=== PATIENT | male | born 1965 | race Caucasian/White ===

== ENCOUNTER 2020-01-27 07:35 | Outpatient (CLI) | payer BC, SELFPAY ==
--- NOTE | ~2020-01-27 | US_ITS ---
US abdomen complete EXAMINATION: US Abdomen Complete INDICATION: Unspecified abdominal hernia. Obstruction. PROCEDURE: Realtime High Resolution abdomen ultrasound. COMPARISON: CT dated 04/02/2004 FINDINGS: Gallbladder within normal limits. No gallstones, pericholecystic fluid, gallbladder wall t hickening or biliary dilatation. There is comet tail artifact, suspicious for adenomyomatosis. Common bile duct measures 3 mm. Liver echotexture within normal limits without focal mass. Pancreas within normal limits. Pancreati c tail is obscured by bowel gas. Spleen is unremarkeable. Renal echotexture is within normal limits bilaterally without hydronephrosis, contour deforming mass or renal stone. Right kidney measures 11.4 cm. Left kidney measures 12 cm. Visualized aspects of the aorta and IVC are within normal limits. Portal vein is patent. No sonograph ic Donahue's sign indicated by the technologist. IMPRESSION: 1: Comet tail artifact of the gallbladder, suspicious for adenomyomatosis. Reviewed, dictated and finalized at location A.
== END 2020-01-27 07:36 | disposition home or self-care (01) ==
PROVIDERS: PCP Family Medicine; Visit Provider Physician Assistant
DX: K46.9 Unspecified abdominal hernia without obstruction or gangrene (principal); R93.89 Abnormal findings on diagnostic imaging of other specified body structures
CPT/HCPCS: 76700

== ENCOUNTER 2020-12-07 01:52 | Day surgery (SDC) | payer BC, SELFPAY ==
[2020-11-27 14:04] VITALS: BMI 14.1
[2020-12-07] MEDS: LACTATED RINGERS 1,000 ML 150 ML IV CONT (06:34)
[2020-12-07 06:36] VITALS: BP 131/87; PULSE 68; RESP 17; TEMP 36.3; O2SAT 97
--- NOTE | 2020-12-07 07:22 | WPDANESEPPF ---
Anes - Initial Pre Proc Eval Procedure: Operation Date: 12/07/20 07:30 Proposed Procedures p Screening Colonoscopy - Jamari Bolanos MD Date/Time: 12/07/20 07:22 Surgeon: Jamari Bolanos MD Pre Op Diagnosis: neoplasm screening Patient Data Age: 55 Gender: M Height: 1.7 m Weight: 80.2 kg Last Vital Signs Temp 97.3 F L 12/07/20 06:36 Pulse 68 12/07/20 06:36 Resp 17 12/07/20 06:36 BP 131/87 12/07/20 06:36 Pulse Ox 97 12/07/20 06:36 Allergies Allergy/AdvReac Type Severity Reaction Status Date / Time NKDA Allergy Unknown Unknown Uncoded 12/07/20 06:27 Home Medications Medication Instructions Recorded Confirmed Type sodium,potassium,mag sulfates 17.5 See Rx Instructions PO .COMPLEX 10/31/20 Rx gram-3.13 gram-1.6 gram oral soln #354 ml atorvastatin 20 mg PO DAILY 11/27/20 11/27/20 History levothyroxine 125 mcg PO DAILY 11/27/20 11/27/20 History Patient hx anesthesia problems: none Family hx anesthesia problems: none [facility] Past Medical History Medical History (Updated 12/07/20 @ 07:21 by Levon Smiley MD) Hyperlipidemia Hypothyroid Throat cancer Social History Social History Smoking status: Never smoker Alcohol use details: occas Substance use type: does not use Living arrangements: with family Spiritual care concerns: No Anes - Eval Final PreProcedure Day of Procedure 12/07/20 07:22 Patient weight: overweight Heart: regular rate and rhythm Lungs: clear to auscultation Airway: Mallampati scale class II Neurological: alert and oriented Last oral intake: >/= 8 hours ASA classification: III Emergent: no Anesthetic plan: proceed Anesthesia type and monitoring: general GIVS and standard monitoring Informed Consent: The patient's anesthetic plan and its attendant risks and benefits were discussed with the patient/family/POA. Questions were solicited and answers provided to the satisfaction of the patient/family/POA.
--- NOTE | 2020-12-07 07:22 | WPDGICN ---
Assessment and Plan Assessment and plan (1) Encounter for screening colonoscopy: Code(s): Z12.11 - Encounter for screening for malignant neoplasm of colon Status: Acute Assessment and Plan: Patient presents for screening colonoscopy. Current weight appetite bowel movements are normal. Patient appears be at average risk for colon polyps. GI Consult Note Consult date/time: 12/07/20 07:22 HPI: Robinson Chin is a 55 year old male Presents for screening colonoscopy. Patient reports that his current weight appetite bowel movements are normal. Patient denies abdominal pain. Denies any blood in his stools. Bowel habits are regular. Family history is noncontributory. Review of Systems Review of Systems: All systems reviewed & are unremarkable except as noted in HPI and below PMFSH Past Medical History Medical History (Updated 12/07/20 @ 07:24 by Jamari Bolanos MD) Hyperlipidemia Hypothyroid Throat cancer Social History Social History Smoking status: Never smoker Alcohol use details: occas Substance use type: does not use Living arrangements: with family Spiritual care concerns: No Meds Home Medications and Allergies Home Medications Medication Instructions Recorded Confirmed Type sodium,potassium,mag sulfates 17.5 See Rx Instructions PO .COMPLEX 10/31/20 Rx gram-3.13 gram-1.6 gram oral soln #354 ml atorvastatin 20 mg PO DAILY 11/27/20 11/27/20 History levothyroxine 125 mcg PO DAILY 11/27/20 11/27/20 History Allergies Allergy/AdvReac Type Severity Reaction Status Date / Time NKDA Allergy Unknown Unknown Uncoded 12/07/20 06:27 Vital Signs Vital Signs - 24 hr 12/07/20 06:36 Temperature 97.3 F L Pulse Rate 68 Respiratory Rate 17 Blood Pressure 131/87 Pulse Oximetry 97 Exam Narrative: Exam Narrative: Physical exam reveals patient be alert. Vital signs stable. HEENT exam is unremarkable. Patient is anicteric. Lungs are clear to auscultation and percussion. Heart is without murmur or extra sounds. Abdominal exam bowel sounds are present soft nontender with no hepatosplenomegaly. Digital external rectal exam is normal.
[2020-12-07 07:48] VITALS: BP 125/83; PULSE 70; RESP 18; O2SAT 94
[2020-12-07 07:58] VITALS: BP 111/76; PULSE 63; RESP 17; O2SAT 94
[2020-12-07 08:08] VITALS: BP 124/83; PULSE 60; RESP 21; O2SAT 95
== END 2020-12-07 08:17 | disposition home or self-care (01) ==
PROVIDERS: PCP Family Medicine; Visit Provider Internal Medicine Gastroenterology
PROC: 0DJD8ZZ Inspection of Lower Intestinal Tract, Via Natural or Artificial Opening Endoscopic (ICD-10-PCS; CPT 45378; principal; 2020-12-07 07:30)
DX: Z12.11 Encounter for screening for malignant neoplasm of colon (principal); K57.30 Diverticulosis of large intestine without perforation or abscess without bleeding; K63.5 Polyp of colon; E78.5 Hyperlipidemia, unspecified; E03.9 Hypothyroidism, unspecified; Z85.819 Personal history of malignant neoplasm of unspecified site of lip, oral cavity, and pharynx
CPT/HCPCS: 45385; 88305; J2704; J7120

== ENCOUNTER 2023-07-01 08:46 | Emergency (ER) | payer BC, SELFPAY ==
--- NOTE | ~2023-07-01 | XR_ITS ---
Clinical Indication: Cough PA and lateral views of the chest: Comparison: 06/18/2018 Findings: The lungs are clear, without evidence of focal consolidation or pleural effusion. Cardiome diastinal silhouette is within normal limits. Bones and soft tissues are unremarkable. Impression: Normal chest. Reviewed, dictated and finalized at [facility]. [facility] Impression: Normal chest.
[2023-07-01 08:57] VITALS: BP 118/67; PULSE 74; RESP 16; TEMP 36.6; O2SAT 97
--- NOTE | 2023-07-01 09:08 | ED.URI ---
HPI - URI/Sore Throat General Chief Complaint: Upper Respiratory Infection Stated Complaint: Fever, Cough, Lethargic, Dizzy Time Seen by Provider: 07/01/23 09:08 Source: patient Mode of arrival: ambulatory Limitations: no limitations History of Present Illness HPI Narrative: Robinson is a 58-year-old male patient presenting to the clinic today with complaints of fever, body aches, cough, lethargic, and dizziness x6 days. He reports highest fever was 102. Did at home COVID test a few times during his illness and those were all negative. He denies any shortness of breath or chest pain at this time. Reports he is bringing up some yellow phlegm but states earlier in the illness it was dark phlegm. Denies being a smoker. MD elicited complaint: sore throat and nasal congestion Related Data Home Medications Medication Instructions Recorded Confirmed levothyroxine 125 mcg tablet 125 mcg PO DAILY 11/27/20 07/01/23 minoxidil 2.5 mg tablet See Rx Instructions .Route .COMPLEX 07/01/23 07/01/23 Allergies Allergy/AdvReac Type Severity Reaction Status Date / Time NKDA Allergy Unknown Unknown Uncoded 07/01/23 08:50 Review of Systems Review of Systems: Pertinent positives per HPI. Patient denies any rash, headache, visual changes, dizziness, shortness of breath, chest pain, palpitations, nausea, vomiting, diarrhea, constipation, abdominal pain, or any urinary issues. PMFSH Past Medical History Medical History Hyperlipidemia Hypothyroid Testicular hypofunction Throat cancer Social History Social History Smoking status: Never smoker Alcohol use details: occas Substance use type: does not use Living arrangements: with family Spiritual care concerns: No Comments At the time of my signature, I reviewed and agree with the nursing past medical, surgical, social, and family history. There is no relevant family history pertinent to the patient complaint. Exam Narrative: General: Well-developed, well nourished, in no apparent distress Head: Normocephalic, atraumatic Eyes: Pupils equally round and reactive to light bilaterally, EOM intact, sclera and conjunctive clear, no discharge, lids normal Ears: TMs intact and clear, ear canals clear, no drainage, grossly hearing normal. Nose: Nares patent, clear discharge, no inflammation, no sinus tenderness. Mouth: Oral pharynx without lesions or masses, good dentition, MMM. Neck: Supple, trachea midline, no enlargement of anterior or posterior cervical nodes, no thyroid masses or goiter palpable. Cardio: Regular rate and rhythm, s1 and s2 normal, no murmur appreciated. Resp: Clear to auscultation bilaterally, no rhonchi, rales, wheezing or rubs Course Course Emergency Course: Portions of this record may have been created with voice recognition software. Level of Care: Express Care Visit Vital Signs Vital signs: Vital Signs Temperature 36.6 C 07/01/23 08:57 Pulse Rate 74 07/01/23 08:57 Respiratory Rate 16 07/01/23 08:57 Blood Pressure 118/67 07/01/23 08:57 Pulse Oximetry 97 07/01/23 08:57 Oxygen Delivery Room Air 07/01/23 08:57 Temperature 36.6 C 07/01/23 08:57 Pulse Rate 74 07/01/23 08:57 Respiratory Rate 16 07/01/23 08:57 Blood Pressure 118/67 07/01/23 08:57 Pulse Oximetry 97 07/01/23 08:57 Oxygen Delivery Room Air 07/01/23 08:57 Vital signs reviewed MDM - URI/Sore Throat MDM Narrative Medical decision making narrative: At the time of visit patient is resting comfortably on the exam table. Patient appears to be nontoxic. Labs: Influenza testing was completed and was negative in the clinic today. Diagnostic: Chest x-ray was performed and negative for any sign of pneumonia. Plan: I suspect patient has viral bronchitis. Prescription for albuterol inhaler and prednisone was sent to th
== END 2023-07-01 09:39 | disposition home or self-care (01) ==
PROVIDERS: Emergency Provider Nurse Practitioner Family; PCP Family Medicine
DX: J40 Bronchitis, not specified as acute or chronic (principal); E78.5 Hyperlipidemia, unspecified; E03.9 Hypothyroidism, unspecified
CPT/HCPCS: 71046; 87804; 99213; G0463

== ENCOUNTER 2024-06-11 09:31 | Emergency (ER) | payer BC, SELFPAY ==
--- NOTE | ~2024-06-11 | XR_ITS ---
EXAMINATION: XR chest 2V DATE: 06/11/2024 10:35 INDICATION: One week of cough and coarse left lung zones. TECHNIQUE: PA and lateral views of the chest were obtained. COMPARISON: Chest radiograph dated 07/01/2023 and 06/18/2018 FINDINGS: Unchanged small calcified nodule in the left midlung zone consistent with old granulomatous disease. Mild linear discoid atelectasis in the infrahilar left lower lobe. No other airspace opacities, pulmo nary edema, pleural effusion or pneumothorax. Heart size normal with prominent left paracardial fat p ad. Mild thoracic spondylosis. IMPRESSION: 1. Discoid atelectasis in the left lower lobe. No other acute cardiopulmonary disease. Reviewed, dictated and finalized at location A. [facility] IMPRESSION: 1. Discoid atelectasis in the left lower lobe. No other acute cardiopulmonary d isease.
--- OUTSIDE RECORDS SUMMARY | 2024-06-11 09:33 | XMS_ITS | Referral Summary ---
Author Organization [facility] Address [address] [place] [address] Care Team Providers Care Curling Machine Operator Name Role Phone Mariah Cole MD Unavailable [phone] Napoleon Beltran MD Primary Care Provider [phone] Allergies No known active allergies Medications atorvastatin (LIPITOR) 20 mg tablet TK 1 T PO QD 3 12/06/2017 Active levothyroxine (SYNTHROID, LEVOTHROID) 100 mcg tablet TK 1 T PO QD IN THE MORNING OES 2 12/07/2017 Active multivitamin tabletIndicatio ns:Vitamin Deficiency Prevention Active testosterone cypionate (DEPO-TESTOTERO NE) 200 mg/mL injection INJ 0.75 ML IM ONCE A WK UTD 5 01/07/2018 Active BD INTEGRA SYRINGE 3 mL 22 gauge x 1 1/2 syringe U UTD ONCE WEEKLY 2 07/11/2018 Active BD LUER-KONRAD SYRINGE 3 mL 25 x 1 1/2 syringe USE UTD ONCE WEEKLY IN THE MUSCLE 0 09/12/2018 Active lisinopriL (PRINIVIL,ZESTR IL) 20 mg tablet Take 1 tablet (20 mg total) by mouth daily 02/20/2023 Active minoxidiL (LONITEN) 2.5 mg tablet Take 1 tablet (2.5 mg total) by mouth daily 02/20/2023 Active levothyroxine (SYNTHROID) 125 mcg tablet Take 1 tablet (125 mcg total) by mouth 02/20/2023 Active BD Luer-Konrad Syringe 3 mL 22 gauge x 1 syringe USE ONCE WEEKLY DIRECTED 01/30/2023 Active BD Luer-Konrad Syringe 3 mL 22 x 1 05/19 syringe USE ONCE WEEKLY DIRECTED. 01/18/2023 Active Active Problems Problem Noted Date Diagnosed Date Squamous cell carcinoma of base of tongue 2017 Seasonal allergic rhinitis 11/25/2016 Edema of larynx 12/05/2015 Hoarseness 12/05/2015 Radiation disease 01/11/2015 Edema of glottis 01/11/2015 Scar 01/11/2015 Multiple benign melanocytic nevi 01/09/2015 Benign neoplasm of skin of back 01/09/2015 Impotence of organic origin 11/02/2013 Multiple-type hyperlipidemia 10/01/2013 Overview (08/22/2016): MIXED HYPERLIPIDEMIA Benign hypertension 10/01/2013 Overview (08/22/2016): BENIGN HYPERTENSION Precordial pain 10/01/2013 Overview (08/22/2016): PRECORDIAL PAIN Overweight 10/01/2013 Overview (08/22/2016): OVERWEIGHT Lymphadenopathy 12/31/2012 Social History Tobacco Use Types Packs/Day Years Used Date Smoking Tobacco: Former Cigarettes Smokeless Tobacco: Never AUDIT-C Answer Date Recorded Q1: How often do you have a drink containing alc ohol? 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 Gender Identity Not on file Sexual Orientation Not on file Last Filed Vital Signs Vital Sign Reading Time Taken Comments Blood Pressure 122/78 02/26/2023 1:59 PM CDT Pulse 79 02/26/2023 1:59 PM CDT Temperature - - Respiratory Rate - - Oxygen Saturation 100% 03/10/2013 2:34 PM CDT Inhaled Oxygen Concentration - - Weight 85.8 kg (189 lb 3.2 oz) 02/26/2023 1:59 P M CDT Height 170.2 cm (5' 7 ) 02/26/2023 1:59 PM CDT Body Mass Index 29.63 02/26/2023 1:59 PM CDT Plan of Treatment Not on file [place] [employer] [place] [employer] [place] Care Teams Curling Machine Operator Relationship Specialty Start Date End Date Napoleon Beltran MD [address] [place] [address] [place] [address] PCP - General Family Medicine 10/08/18 Mariah Cole MD 07/06/18
--- OUTSIDE RECORDS SUMMARY | 2024-06-11 09:33 | XMS_ITS | Clinical Summary ---
Author Organization [facility] Address [address] [place] [address] Care Team Providers Care [facility] Dem[employer]ation Agent Name Role Phone Mariah Cole MD Unavailable [phone] Napoleon Beltran MD Primary Care Provider [phone] Allergies No known active allergies Medications atorvastatin [...] Overweight 10/01/2013 Overview (08/22/2016): OVERWEIGHT Lymphadenopathy 12/31/2012 Medical History Medical History Date Comments Personal history of urinary calculi Personal history of renal calculi - (Added by TW Conv) Social History Tobacco Use Types Packs/Day Years [...] on file 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 Gender Identity Not on file Sexual Orientation Not on file Obstetrics History Last Filed Vital Signs Vital Sign Reading [...] 02/26/2023 1:59 PM CDT Plan of Treatment Health Maintenance Due Date Last Done Comments Colon Cancer Screening-Colonoscopy 1965 Depression Screening 1965 Hepatitis C Screening 1965 Prostate Cancer Screening-PSA 1965 Hepatitis B Screening 1983 Regular Well Visit/Exam 18-64 1983 Zoster Vaccine (1 of 2) 2015 Covid-19 Vaccine (2023-2 5 season) 2024 03/01/2021, 08/06/2020, 07/05/2020 Influenza Vaccine (#1) 2024 02/03/2019 DTaP/Tdap/Td Vaccine (2 - Td or Tdap) 07/13/2032 07/13/2022 Pneumococcal vaccine <65 Aged Out 07/30/2019 No longer eligible based on patient's age to complete this topic Insurance [facility] Care Teams [facility] Home Demonstration Agent Relationship Specialty Start Date End Date Napoleon Beltran MD [address] [place] [address] [place] [address] PCP - General Family Medicine 10/08/18 Mariah Cole MD 07/06/18
[2024-06-11 10:03] VITALS: BP 150/82; PULSE 101; RESP 18; TEMP 37.3; O2SAT 96
--- NOTE | 2024-06-11 10:24 | ED.URI ---
HPI - URI/Sore Throat General Chief Complaint: Upper Respiratory Infection Stated Complaint: congestion Time Seen by Provider: 06/11/24 10:24 Source: patient Mode of arrival: ambulatory Limitations: no limitations History of Present Illness HPI Narrative: 59-year-old male presents with complaint of cough, chest congestion for 1 week. Developed fever 3 days ago. Cough and chest congestion getting progressively worse with fatigue and some mild shortness of breath with exertion. Patient reports pneumonia exposure from to close family members. No respiratory distress noted. All systems reviewed and negative except as noted above. Related Data Home Medications ?Medication ?Instructions ?Recorded ?Confirmed ?Last Taken ?Type minoxidil 2.5 mg tablet See Rx Instructions .Route .COMPLEX 07/01/23 07/28/23 Unknown History Allergies Allergy/AdvReac Type Severity Reaction Status Date / Time NKDA Allergy Unknown Unknown Uncoded 06/11/24 10:10 Review of Systems Review of Systems: CONSTITUTIONAL: reports fever, chills, or sweats. EYES: Denies visual changes, redness, or discharge. ENT: Denies rhinorrhea, congestion, sore throat, or otalgia. CARDIOVASCULAR: Denies chest pain, palpitations, or edema. RESPIRATORY: Reports cough and dyspnea with exertion. GASTROINTESTINAL: Denies abdominal pain, nausea, vomiting, or diarrhea. GENITOURINARY: Denies dysuria or hematuria. SKIN: Denies rash or itching. MUSCULOSKELETAL: Denies back pain, joint pain, or myalgia. NEUROLOGIC: Denies headache, numbness, or weakness. PSYCHIATRIC: Denies anxiety or depression. All other systems reviewed are negative, except as documented in HPI. [facility] Past Medical History Medical History (Updated 06/11/24 @ 10:50 by Tiera Nguyen NP) Testicular hypofunction Encounter for screening colonoscopy Hypothyroid Hyperlipidemia Surgical History Surgical History (Updated 07/28/23 @ 17:20 by Napoleon Beltran MD) History of throat surgery 2012 for throat cancer Family History Family History (Updated 07/28/23 @ 17:23 by Napoleon Beltran MD) Father Hypertension Mother No problems noted. Sibling No problems noted. Grandparent , age 82 Carcinoma of colon Social History Social History (Updated 07/28/23 @ 17:24 by Napoleon Beltran MD) Smoking status: Never smoker Alcohol intake: current Drinks per week: 12 Alcohol use details: occas Substance use: never Substance use type: does not use Do You Feel Safe in your Home?: Yes Lack of Transportation: No Lack of Food: Never True Current Housing: I Have Housing Concerned About Future Housing: No Difficulty Paying Gas/Electric Bills: No Difficulty Paying for Meds: No Currently Unemployed: No Education: Trade/Vocational Certificate Difficulty w/ Childcare or Family Care: No Living arrangements: with family Occupation/Education: occupation Additional occupation/education comments: 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 There is no relevant family history pertinent to the presenting complaint. Exam Narrative: GENERAL: This is a well-nourished, well-developed patient, patient ill-appearing but in no acute distress HEAD: normocephalic, atraumatic. EYES: PERRL. Sclera clear/white. Vision is grossly intact. EARS: External ears normal, auditory canals clear and without drainage, TMs normal without perforation. Hearing grossly intact. NOSE: External nose normal with no obvious nasal discharge, nares without redness, no rhinorrhea. THROAT: Mucous membranes moist, posterior pharynx clear. NECK: Neck supple, non-tender without lymphadenopathy, masses or thyromegaly. CARDIOVASCULAR: Regular rate and rhythm without murmurs, gallops, or rubs. RESPIRATORY: left lung coarse and crackly on expiration otherwise clear. Breath sounds equal bilaterally. No wheezes GASTROINTESTINAL: Abdomen soft, non-tender, nondistended. Bowel sounds are active. No hepato-splenomegaly, or palpable masses. No guarding. SKIN: warm, Dry, intact with no suspicious lesions or rash, good texture and turgor. NEURO: awake, alert, and oriented to person, place and time. There were no obvious focal neurologic abnormalities. EXTREMITIES: No joint tenderness, effusion, or edema noted. No calf tenderness. Negative Homans sign bilaterally. BACK: Nontender without deformity. No CVA tenderness. Course Course Level of Care: Express Care Visit Vital Signs Vital signs: Vital Signs Temperature 37.3 C 06/11/24 10:03 Pulse Rate 101 H 06/11/24 10:03 Respiratory Rate 18 01/25/25 10:03 Blood Pressure 150/82 H 06/11/24 10:03 Pulse Oximetry 96 06/11/24 10:03 Oxygen Delivery Room Air 06/11/24 10:03 Temperature 37.3 C 06/11/24 10:03 Pulse Rate 101 H 06/11/24 10:03 Respiratory Rate 18 06/11/24 10:03 Blood Pressure 150/82 H 06/11/24 10:03 Pulse Oximetry 96 06/11/24 10:03 Oxygen Delivery Room Air 06/11/24 10:03 Reviewed MDM - URI/Sore Throat MDM Narrative Medical decision making narrative: chest x-ray atelectasis to left lung. Due to patient's pneumonia Exposure, symptoms and chest x-ray results will treat with antibiotic for pneumonia. patient alert, nontoxic. No respiratory distress. Patient agrees with plan of care. Patient is aware of diagnosis, understands and agrees to treatment plan. Anticipatory guidance given. Patient agrees to follow-up as directed and is aware of reasons to seek care at the emergency department. Portions of this record may have been created with voice recognition software Differential Diagnosis Differential diagnosis: Likely upper respiratory infection, sinusitis, viral infection, influenza and other ( COVID, pneumonia) Imaging Data My impression: Agree with radiologist Radiologist's impression: EXAMINATION: XR chest 2V DATE: 06/11/2024 10:35 INDICATION: One week of cough and coarse left lung zones. TECHNIQUE: PA and lateral views of the chest were obtained. COMPARISON: Chest radiograph dated 07/01/2023 and 06/18/2018 FINDINGS: Unchanged small calcified nodule in the left midlung zone consistent with old granulomatous disease. Mild linear discoid atelectasis in the infrahilar left lower lobe. No other airspace opacities, pulmonary edema, pleural effusion or pneumothorax. Heart size normal with prominent left paracardial fat pad. Mild thoracic spondylosis. IMPRESSION: 1. Discoid atelectasis in the left lower lobe. No other acute cardiopulmonary disease. Discharge Plan Discharge Clinical Impression: Pneumonia Qualifiers: Pneumonia type: due to unspecified organism Laterality: left Lung location: unspecified part of lung Qualified Code(s): J18.9 - Pneumonia, unspecified organism Patient Disposition: Home, Self-Care Condition: Stable Instructions: Antibiotic Form, Pneumonia (ED) Additional Instructions: take medications as prescribed. Take ibuprofen or Tylenol every 6-8 hours as needed for pain and fever. Drink plenty of water and rest. Follow-up with your primary care physician if cough is not improving. Patient Language: [place] Prescriptions: New (DME) Aerochamber Plus Z Stat Spacer See Rx Instructions .Route Qty: 1 0RF Rx Instructions: As directed doxycycline hyclate 100 mg capsule 100 mg PO BID 7 Days Qty: 14 0RF benzonatate 200 mg capsule 200 mg PO TID PRN (Reason: cough) Qty: 20 0RF methylprednisolone [Medrol (Mg)] 4 mg tablets,dose pack See Rx Instructions PO .COMPLEX Qty: 21 0RF Rx Instructions: orally per package directions albuterol sulfate 90 mcg/actuation HFA aerosol inhaler 2 puff inhalation Q4-6H PRN (Reason: shortness of breath or wheezing) Qty: 8.5 0RF No Action minoxidil 2.5 mg tablet See Rx Instructions .ROUTE .COMPLEX Rx Instructions: 2.5 mg orally albuterol sulfate 90 mcg/actuation HFA aerosol inhaler 2 puff inhalation Q4-6H PRN (Reason: shortness of breath or wheezing) 30 Days Qty: 8.5 0RF levothyroxine 125 mcg tablet 125 mcg PO DAILY Qty: 90 1RF lisinopril 20 mg tablet 20 mg PO DAILY Qty: 90 1RF atorvastatin 20 mg tablet 20 mg PO DAILY Qty: 90 1RF testosterone cypionate 200 mg/mL oil 100 mg IM WEEKLY Qty: 4 5RF Rx Instructions: as a single dose (DME) BD Luer-Konrad Syringe 3 mL 25 x 1 1/2 syringe See Rx Instructions .ROUTE .COMPLEX Qty: 8 0RF Dose Instruction: USE TO INJECT TESTOSTERONE EVERY WEEK DIRECTED Rx Instructions: USE TO INJECT TESTOSTERONE EVERY WEEK DIRECTED Follow-up/Referrals: Napoleon Beltran MD [Primary Care Provider] - Stand Alone Forms: Work/School Release IP Time of Disposition: 10:52
== END 2024-06-11 10:55 | disposition home or self-care (01) ==
PROVIDERS: Emergency Provider Nurse Practitioner Family; PCP Family Medicine
DX: J18.9 Pneumonia, unspecified organism (principal); E03.9 Hypothyroidism, unspecified; E78.5 Hyperlipidemia, unspecified
CPT/HCPCS: 71046; 99213; G0463